=== PATIENT | male | born 1970 | race Two or more races ===

== ENCOUNTER 2017-12-27 18:16 | Emergency (ER) | payer OTHER ==
[~2017-12-27] VITALS: Ht 167.6 cm; Wt 194.1 kg
[2017-12-27 18:39] VITALS: BP 160/79
--- NOTE | 2017-12-27 18:55 | NUR ---
CALLED UROLOGIST DR WRIGHT FOR CONSULT, IS SPEAKING TO PHILLY SABILLON NOW.
[2017-12-27] MEDS ORDERED: diphenhydrAMINE HCL 25 MG CAPSULE ONE (19:06)
[2017-12-27] MEDS ORDERED: predniSONE 20 MG TABLET ONE (19:06)
[2017-12-27] MEDS: predniSONE 20 MG TABLET PO ONE (19:09)
[2017-12-27] MEDS: diphenhydrAMINE HCL 25 MG CAPSULE PO ONE (19:09)
== END 2017-12-27 19:45 | disposition home or self-care (01) ==
LOC: ER 18:21
DX: T78.1XXA Other adverse food reactions, not elsewhere classified, initial encounter (principal); E66.01 Morbid (severe) obesity due to excess calories; E03.9 Hypothyroidism, unspecified; Z68.44 Body mass index [BMI] 60.0-69.9, adult; X58.XXXA Exposure to other specified factors, initial encounter
CPT/HCPCS: A4606; Q0163; Z7610

== ENCOUNTER 2019-06-23 19:39 | Emergency (ER) | payer OTHER ==
[~2019-06-23] VITALS: Ht 167.6 cm; Wt 172.4 kg
--- NOTE | 2019-06-23 19:45 | NUR ---
PT BIBWIFE. L MID BACK BACK PAIN RADIATING TO L UPPER CHEST X 5 DAYS. PT AAOX4, RR EVEN AND UNLABORED ON RA W/ NAD NOTED. PT CONNECTED TO THE PRECISION INSTRUMENT MAKER AND REPAIRER AND POX
[2019-06-23] MEDS ORDERED: MORPHINE SULFATE INJ 2 MG/ML DISP.SYRIN IV ONE (20:00)
[2019-06-23] MEDS ORDERED: ONDANSETRON HCL/PF 4 MG/2 ML VIAL IVP ONE (20:00)
[2019-06-23] MEDS ORDERED: IV NS 0.9% 500 ML BAG IV ONE (20:00)
[2019-06-23] MEDS ORDERED: MORPHINE SULFATE INJ 4 MG/ML DISP.SYRIN ONE (20:07)
[2019-06-23] MEDS ORDERED: ONDANSETRON HCL/PF 4 MG/2 ML VIAL ONE (20:07)
[2019-06-23 20:17] LABS: BASOPHILS # (AUTO) 0.1 /CMM (0.0-0.2); BASOPHILS % (AUTO) 1.2 % (0.0-2.0); EOSINOPHILS % (AUTO) 2.2 % (0.0-6.0); HEMATOCRIT 46 % (39-51); HEMOGLOBIN 15.5 g/dL (13.5-17.5); LYMPHOCYTES # (AUTO) 2.4 /CMM (0.8-4.8); LYMPHOCYTES % (AUTO) 23.1 % (20.0-44.0); MEAN CORPUSCULAR HGB CONC 34 g/dl (31.0-36.0); MEAN CORPUSCULAR VOLUME 87 fL (80-96); MONOCYTES # (AUTO) 0.8 /CMM (0.1-1.30); MONOCYTES % (AUTO) 7.7 % (2.0-12.0); NEUTROPHILS # (AUTO) 6.8 /CMM (1.8-8.9); NEUTROPHILS % (AUTO) 65.8 % (43.0-81.0); PLATELET COUNT (AUTO) 225 /CMM (150-450); RED BLOOD CELL COUNT(AUTO) 5.26 MIL/uL (4.5-6.0); WHITE BLOOD COUNT (AUTO) 10.3 K/uL (4.3-11.0)
--- NOTE | 2019-06-23 20:29 | NUR ---
XRAY IS AT THE BEDSIDE.
[2019-06-23 20:48] LABS: D-DIMER 0.28 mg/L(FEU (0.17-0.50)
[2019-06-23 20:49] LABS: CALCIUM, SERUM 8.6 mg/dL (8.5-10.1); CARBON DIOXIDE 28 mmol/L (21-32); CHLORIDE 104 mmol/L (98-107); CREATININE 1.1 mg/dL (0.6-1.3); GLUCOSE 116 mg/dL (74-106); POTASSIUM 3.8 mmol/L (3.5-5.1); SODIUM SERUM 141 mmol/L (136-145); UREA NITROGEN, BLOOD 16 mg/dL (7-18)
[2019-06-23 20:53] LABS: ALANINE AMINOTRANSFERASE 26 U/L (12-78); ALBUMIN 3.5 g/dL (3.4-5.0); ALKALINE PHOSPHATASE 62 U/L (46-116); ASPARTATE AMINOTRANSFERASE 15 U/L (15-37); BILIRUBIN,DIRECT 0.1 mg/dL (0.0-0.2); BILIRUBIN,TOTAL 0.3 mg/dL (0.2-1.0); TOTAL PROTEIN, SERUM 7.4 g/dL (6.4-8.2)
[2019-06-23] MEDS ORDERED: IOHEXOL-350 100 ML VIAL IV ONE (21:23)
[2019-06-24 00:20] VITALS: BP 121/68
--- NOTE | 2019-06-24 00:20 | NUR ---
Patient discharged to home in stable condition. Written and verbal after care instructions given. Patient verbalizes understanding of instruction.IV removed. Catheter intact and site benign. Pressure and 4x4 applied to site. No bleeding noted.
== END 2019-06-24 00:20 | disposition home or self-care (01) ==
LOC: ER 19:44
DX: R07.89 Other chest pain (principal); E66.01 Morbid (severe) obesity due to excess calories; E03.9 Hypothyroidism, unspecified; I45.10 Unspecified right bundle-branch block; I44.4 Left anterior fascicular block; Z68.44 Body mass index [BMI] 60.0-69.9, adult
CPT/HCPCS: 36415; 71045; 71275; 80048; 80076; 84484 ×2; 85025; 85378; 85730; 93005 ×2; 96374; 96375; 99285; J2270; J2405; J7040; Q9967